=== PATIENT | male | born 2000 | race African-American/Black ===

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

== ENCOUNTER 2019-06-02 09:04 | Emergency (ER) | payer BC ==
[2019-06-02 09:29] VITALS: BP 105/47
--- NOTE | 2019-06-02 09:59 | UC ---
UC General HPI - HPI Summary HPI Summary: 18 yo gentleman c/o last 2 weeks of episodic diarrhea, up to 12 episodes in a short period. Some nausea. Vomited x 1. Sensitive to smells. Unk fever / chills. Feels tired. No rash. No cough / sob / palpitations. No h/a, no vis / aud issues. No melena / brbpr. No issues. - History of Current Complaint Chief Complaint: UCAbdominalPain Stated Complaint: VOMITING/DIARRHEA Time Seen by Provider: 06/02/19 09:57 Hx Obtained From: Patient Pain Intensity: 8 - Allergy/Home Medications Allergies/Adverse Reactions: Allergies Allergy/AdvReac Type Severity Reaction Status Date / Time No Known Allergies Allergy Verified 06/02/19 09:29 PMH/Surg Hx/FS Hx/Imm Hx Previously Healthy: Yes - Surgical History Surgical History: Yes Surgery Procedure, Year, and Place: left thumb - Family History Known Family History: Positive: Hypertension, Diabetes - Social History Alcohol Use: None Substance Use Type: None Smoking Status (MU): Former Smoker Household Exposure Type: Cigarettes - Immunization History Most Recent Influenza Vaccination: season Vaccination Up to Date: Yes Review of Systems All Other Systems Reviewed And Are Negative: Yes Constitutional: Positive: Fatigue Skin: Positive: Negative Eyes: Positive: Negative ENT: Positive: Negative Respiratory: Positive: Negative Cardiovascular: Positive: Negative Gastrointestinal: Positive: Other - see hpi Genitourinary: Positive: Negative Motor: Positive: Negative Neurovascular: Positive: Negative Musculoskeletal: Positive: Negative Neurological: Positive: Negative Psychological: Positive: Negative Is Patient Immunocompromised?: No Physical Exam Triage Information Reviewed: Yes Appearance: Thin - sitting up, conversing easily and appropriately. nad. looks tired, but nontoxic general appearance. Vital Signs: Initial Vital Signs Temp 98 F 06/02/19 09:27 Pulse 50 06/02/19 09:27 Resp 18 06/02/19 09:27 BP 105/47 06/02/19 09:27 Pulse Ox 100 06/02/19 09:27 Vital Signs Reviewed: Yes Eye Exam: Normal - grossly normal ENT Exam: Normal Neck exam: Normal Neck: Positive: Supple Respiratory Exam: Other - bilat mild exp wheeze, no rtx Respiratory: Positive: No respiratory distress, No accessory muscle use Cardiovascular Exam: Normal Cardiovascular: Positive: RRR, No Murmur, Pulses Normal, Brisk Capillary Refill Abdominal Exam: Other - + soft, nt, nd BS present slighly hyperactive Musculoskeletal Exam: Normal - gait steady, moves x 4 ext's Neurological Exam: Normal - grossly nonfocal Psychological Exam: Normal - conversing easily and appropriately Skin Exam: Normal - nondiaphoretic no visible or reported rash Course/Dx - Course Course Of Treatment: Reviewed coa / tx plan Recommend close f/u with pcp, he or mom will call today for appt stool tets ordered Encouraged to avoid going to work until sx resolved. Note written until Saturday. To ED if worse. 11:06 - after pt's departure, rx e-scribed for albuterol (+ wheeze on resp exam) . I had told him during the course of examination that I would prescribed inhaler. He has a hx of asthma as a child, reports that he thought he grew out of it. - Diagnoses Provider Diagnosis: Diarrhea Discharge - Sign-Out/Discharge Documenting (check all that apply): Patient Departure All imaging exams completed and their final reports reviewed: No Studies - Discharge Plan Condition: Stable Disposition: HOME Prescriptions: Albuterol HFA INHALER* [Ventolin HFA Inhaler*] 1 - 2 puff INH Q6H PRN #1 mdi PRN Reason: Wheezing Ondansetron ODT TAB* [Zofran 4 MG Odt TAB*] 4 mg PO Q8H PRN #12 tab.odt PRN Reason: Nausea Patient Education Materials: Acute Diarrhea (ED) Forms: *Work Release [facility] [[facility] - Additional Instructions: Hydrate. Stool sample ordered. Call your primary care physician, Dr. Gonzáles, to arrange follow up appointment for this week if possible. Meanwhile, please go to the Emergency Department for worse or new problems. Do not go to work if you actively have diarrhea or are throwing up. - Billing Disposition and Condition Condition: STABLE Disposition: Home
== END 2019-06-02 10:45 | disposition home or self-care (01) ==
LOC: UCEAST 09:04
DX: R19.7 Diarrhea, unspecified (principal); R11.0 Nausea; Z87.891 Personal history of nicotine dependence
CPT/HCPCS: 99212; G0463